=== PATIENT | male | born 2000 | race Caucasian/White ===

== ENCOUNTER 2022-04-02 19:03 | Emergency (ER) | payer OTHER ==
[~2022-04-02] VITALS: Ht 177.8 cm; Wt 70.3 kg
== END 2022-04-02 22:02 | disposition left against medical advice (07) ==
LOC: ER 19:03
DX: K08.89 Other specified disorders of teeth and supporting structures (principal); Z53.21 Procedure and treatment not carried out due to patient leaving prior to being seen by health care provider
CPT/HCPCS: 99281

== ENCOUNTER → 2023-06-26 | Outpatient (CLI) | payer OTHER | END | disposition home or self-care (01) | LOC: LAB SHORT 19:01 → LAB 19:01 | DX: J02.9 Acute pharyngitis, unspecified (principal) | CPT/HCPCS: 87081 ==

== ENCOUNTER 2023-08-22 10:52 | Emergency (ER) | payer OTHER ==
[~2023-08-22] VITALS: Ht 167.6 cm; Wt 74.8 kg
[2023-08-22 11:18] VITALS: BP 179/112
[2023-08-22] MEDS ORDERED: Robaxin750 MG PO (13:17)
[2023-08-22] MEDS ORDERED: IBUP800 PO (13:17)
== END 2023-08-22 13:56 | disposition home or self-care (01) ==
LOC: ER 10:52
DX: M54.6 Pain in thoracic spine (principal); X50.0XXA Overexertion from strenuous movement or load, initial encounter; Y99.0 Civilian activity done for income or pay
CPT/HCPCS: 72070; 72100; 96372; 99283-25; A9270; J1885

== ENCOUNTER 2023-09-22 16:32 | Emergency (ER) | payer OTHER ==
[~2023-09-22] VITALS: Ht 177.8 cm; Wt 88.5 kg
[~2023-09-22 16:32] MED LIST: IBUP800 PO; Robaxin750 MG PO
[2023-09-22 16:38] VITALS: BP 123/107
[2023-09-22] MEDS ORDERED: HYDHCL25 PO (17:28)
== END 2023-09-22 17:25 | disposition home or self-care (01) ==
LOC: ER 16:32
DX: F41.1 Generalized anxiety disorder (principal); Z79.899 Other long term (current) drug therapy
CPT/HCPCS: 93005; 93010; 99283-25; A9270

== ENCOUNTER 2025-08-25 22:28 | Emergency (ER) | payer OTHER ==
[~2025-08-25] VITALS: Ht 177.8 cm; Wt 97.5 kg
[~2025-08-25 22:28] MED LIST changes: +HYDHCL25 PO
[2025-08-25 22:54] VITALS: BP 134/91
== END 2025-08-26 05:04 | disposition left against medical advice (07) ==
LOC: ER 22:28
DX: R11.2 Nausea with vomiting, unspecified (principal); Z53.21 Procedure and treatment not carried out due to patient leaving prior to being seen by health care provider
CPT/HCPCS: 93005; 93010